=== PATIENT | female | born 2000 | race Caucasian/White ===

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

== ENCOUNTER → 2021-05-22 10:28 | Outpatient (CLI) | payer MEDICAID, SELFPAY ==
[2021-05-22 12:29] LABS: Absolute Lymphocyte Count 2.82 X10^3/uL (0.83-4.51); Basophil# 0.05 X10^3/uL; Basophil% 0.7 % (0-1); Eosinophils% 1.3 % (0-5); Hemoglobin 13.1 g/dL (12.0-15.0); Lymphocyte # 2.82 X10^3/ul (0.83-4.51); Lymphocyte % 37.7 % (19-41); Mean Corp Hgb Conc 31.2 g/dL (32-36); Mean Corpuscular Hgb 26.6 pg (27.0-32.0); Mean Corpuscular Volume 85.4 fL (81-99); Mean Platelet Vol. 10.7 fl (6.2-12.0); Monocyte# 0.52 X10^3/uL; NRBC Flagged by Analyzer 0 % (0-5); Neutrophil # 3.98 X10^3/uL (2.7-7.7); Neutrophil % 53.2 % (47-70); Platelet Count 370 K/mm3 (150-450); RBC Distribution Width CV 12.9 % (11.6-14.6); RBC Distribution Width SD 39.9 fl (35.1-43.9); Red Blood Count 4.92 M/mm3 (4.2-5.4); White Blood Count 7.5 K/mm3 (4.4-11.0)
[2021-05-22 12:39] LABS: Prothrombin Time (Protime)PT. 12.3 SECONDS (11.7-14.9)
[2021-05-22 12:40] LABS: Partial Thromboplast Time 30.1 Seconds (24.1-36.2)
[2021-05-22 12:54] LABS: ALB/GLOB Ratio 0.9 RATIO (0.9-2.4); AST(SGOT) 16 U/L (15-37); Alanine Aminotransfer ALT/SGPT 23 U/L (13-56); Albumin, Serum 3.3 g/dL (3.2-5.0); Alkaline Phosphatase 119 U/L (45-117); Anion Gap 3 (5-15); BUN 8 mg/dL (7-18); BUN/Creat Ratio 10.1 RATIO (10-20); Calcium,Total 8.9 mg/dL (8.5-10.1); Chloride 108 mmol/L (98-107); Cholesterol 165 mg/dL (200); Creatinine, Serum 0.79 mg/dL (0.55-1.02); EST Glomerular Filtration Rate 98 mL/min (>60); Est Glom Filt Rate - Afr Amer 118 mL/min (>60); Globulin 3.8 g/dL (2.2-4.2); Glucose 84 mg/dL (74-106); High Density Lipoprotein 44 mg/dL; Iron 72 ug/dL (50-170); Iron Binding Capacity,Total 379 ug/dL (250-450); Potassium 4.3 mmol/L (3.5-5.1); Protein, Total 7.1 g/dL (6.4-8.2); Sodium Level 140 mmol/L (136-145); T4 Free Direct 1.09 ng/dL (0.76-1.46); Thyroid Stim Hormone (TSH) 0.72 uIU/mL (0.358-3.74); Triglycerides 204 mg/dL; Very Low Density Lipoprotein 41 mg/dL (5-40)
== END ==
PROVIDERS: PCP Pediatrics; Referring Provider Pediatrics; Visit Provider Pediatrics
DX: T14.8XXA Other injury of unspecified body region, initial encounter (principal)
CPT/HCPCS: 36415; 80053; 80061; 83540; 83550; 84439; 84443; 85025; 85610; 85730

== ENCOUNTER → 2022-04-01 | Outpatient (CLI) | payer MEDICAID, SELFPAY ==
[2022-04-03 16:49] LABS: t-Transglutaminase IgA <2 U/mL (0-3)
[2022-04-10 12:09] LABS: Clam <0.10 kU/L (Class 0); Codfish <0.10 kU/L (Class 0); Corn <0.10 kU/L (Class 0); Crab <0.10 kU/L (Class 0); Egg, White <0.10 kU/L (Class 0); Milk (Cow) <0.10 kU/L (Class 0); Peanut <0.10 kU/L (Class 0); SCALLOP <0.10 kU/L (Class 0); SESAME SEED <0.10 kU/L (Class 0); Shrimp <0.10 kU/L (Class 0); Soybean <0.10 kU/L (Class 0); Walnut, (Food) <0.10 kU/L (Class 0); Wheat <0.10 kU/L (Class 0)
[2022-04-10 14:00] LABS: Lobster <0.10 kU/L (Class 0)
== END | disposition home or self-care (01) ==
PROVIDERS: Referring Provider Otolaryngology; Visit Provider Otolaryngology
DX: R19.7 Diarrhea, unspecified (principal)
CPT/HCPCS: 36415; 83516; 86003

== ENCOUNTER 2022-06-16 19:39 | Emergency (ER) | payer MEDICAID, SELFPAY ==
[2022-06-16 19:40] VITALS: BP 115/78; PULSE 88; RESP 16; TEMP 36.4; O2SAT 97; BMI 27.4
[2022-06-16 20:29] LABS: Bacteria 0 SEEN /hpf (None Seen); Mucous, Urine 0 SEEN /hpf (<or=2+); Red Blood Cells-Urine 0 SEEN /hpf (0-5)
--- NOTE | 2022-06-16 20:40 | EDS_ITS ---
HPI HPI - Female History of Present Illness Chief Complaint: Complaint Narrative Narrative: 22-year-old female presenting with dysuria and urinary frequency. She has some mild suprapubic pain. Patient states that she does have some back pain but she always has this year. Is on the right lumbar region. Denies any trauma. No sharp pain in the flank. A couple of days ago she was [facility] and diagnosed with UTI. She states has had a culture. They placed her on Bactrim. Patient states that she had been on Bactrim previously a long time ago. She had a UTI about a month ago and was on Keflex and this did help. She states her symptoms cleared up until this last visit on Thursday. Patient denies fever. She is not having vaginal complaints or diarrhea. She had a headache 2 days ago which is resolved. He does not have nausea or vomiting. [facility] Medical History GERD (gastroesophageal reflux disease) IBS (irritable bowel syndrome) Home Medications cefpodoxime 200 mg tablet 200 mg PO BID #20 tabs 06/16/22 [Rx Last Taken Unknown] norgestimate-ethinyl estradiol 0.18 mg/0.215mg/0.25mg-35 mcg(28)tablet (Tri- Sprintec (28)) 1 tab PO DAILY 06/16/22 [History Last Taken Unknown] sulfamethoxazole 800 mg-trimethoprim 160 mg tablet 1 tab PO BID 06/16/22 [History Last Taken Unknown] triamcinolone acetonide 55 mcg nasal spray aerosol 2 spray intranasal DAILY 06/16/22 [History Last Taken Unknown] Allergy/AdvReac Type Severity Reaction Status Date / Time pineapple Allergy Food Verified 06/16/22 19:43 Allergy RANCH DRESSING Allergy Angioedema Uncoded 06/16/22 19:43 Family History Mother Mitral valve prolapse Surgical History History of appendectomy History of tonsillectomy and adenoidectomy Social History Smoking Status: Never smoker alcohol intake: never ROS ROS ED Constitutional Constitutional ED: Denies chills, fever(s) or sweats Eyes Eyes: Denies blurry vision or change in vision ENT ENT ED: Denies ear pain or sore throat Cardiovascular Cardiovascular: Denies chest pain, palpitations or racing heartbeat Respiratory/Chest Respiratory/Chest: Denies cough, dyspnea or sputum Gastrointestinal Gastrointestinal: Denies abdominal pain, constipation, diarrhea, nausea or vomiting Genitourinary Genitourinary ED: Reports dysuria and urinary frequency; Denies hematuria Musculoskeletal Musculoskeletal: Denies arthralgias, myalgias or neck pain Integumentary Denies abscess, Abrasions or rash Neurologic Neurologic: Reports headache(s); Denies paresthesias or weakness Psychiatric Psychiatric: Denies anxiety, depression, suicidal ideation or suicidal thoughts Endocrine Endocrinology: Denies polydipsia or polyuria EXAM Physical Exam Const Vital Signs: 06/16/22 19:40 06/16/22 21:35 Temperature 97.6 F L Temperature Source Temporal Pulse Rate 88 85 Respiratory Rate 16 18 Blood Pressure 115/78 123/82 H Blood Pressure Mean 90 Pulse Ox 97 97 Oxygen Delivery Method Room Air General Appearance ED: Negative for pallor HEENT Reports normocephalic, head/scalp atraumatic and moist mucous membranes Eyes PERRL and EOMs intact bilaterally Resp normal respiratory effort and clear to auscultation bilaterally Auscultation: Negative for rales, rhonchi or wheezes Cardio regular rate and regular rhythm GI normal to inspection, nondistended, normoactive bowel sounds and non-distended Auscultation: normoactive bowel sounds Palpation: soft Narrative: Deferred Back/Spine no CVA tenderness General Back: Negative for CVA tenderness Neuro oriented x3 and CN's II-XII intact bilaterally Sensorium / Orientation: alert Motor Exam: strength 5/5 throughout Psych mental status grossly normal Attitude: No agitated Skin no rashes or lesions noted and no wounds General Skin Exam: Negative for jaundice or pallor MDM MDM MDM Narrative Medical decision making narrative: Patient presenting with continued dysuria. Urinalysis today consistent with infection. Urine culture was again sent. I could not find her previous urine culture. Vital signs are stable and she is afebrile. She does not have CVA tenderness consistent with a pyelonephritis however given her back pain and continued UTI I did cover her. She started on cefpodoxime. Patient will discontinue her Bactrim. Patient can return precautions. She is given follow- up with urology due to recurrent UTI. Impression: 1. Back pain 2. Dysuria 3. UTI Lab Data Attestation: I reviewed the patient's lab results. Labs: Laboratory Results - last 24 hr 06/16/22 20:20 Urine Color Yellow Urine Clarity Sl. Cloudy Urine pH 6.0 Ur Specific [place] 1.005 Urine Protein Negative Urine Glucose (UA) Normal Urine Ketones Negative Urine Occult Blood Negative Urine Nitrite Positive H Urine Bilirubin Negative Urine Urobilinogen 1 H Ur Leukocyte Esterase 25 H Urine RBC 0 SEEN Urine WBC 0-5 SEEN Ur Squamous Epith Cells 0-5 SEEN Urine Bacteria 0 SEEN Urine Mucus 0 SEEN Urine Test Negative Discharge Plan Triage Chief Complaint: Complaint ED Provider: Irvin Archer Dx/Rx/DC Orders Instructions: ED CYSTITIS Female Adult Prescriptions: New cefpodoxime 200 mg tablet 200 mg PO BID Qty: 20 0RF Rx Instructions: must administer with a meal/food No Action sulfamethoxazole-trimethoprim 800-160 mg tablet 1 tab PO BID Label Comments: TAKE 1 TABLET BY MOUTH TWICE DAILY FOR 5 (FIVE) DAYS. triamcinolone acetonide 55 mcg aerosol,spray 2 spray INTRANASAL DAILY Label Comments: Use 1 (ONE) spray IN EACH NOSTRIL TWICE DAILY DIRECTED norgestimate-ethinyl estradiol [Tri-Sprintec (28)] 0.18/0.215/0.25 mg-35 mcg (28) tablet 1 tab PO DAILY Label Comments: TAKE 1 TABLET BY MOUTH DAILY Primary Care Provider: Care Physician,No Primary Referrals: Alexandra Gipson MD [Med Staff - Active Staff] - 3-5 Days Care Physician,No Primary [Primary Care Provider] - Disposition Disposition: Home, Self Care Discharge Date/Time: 06/16/22 21:35
[2022-06-16 20:45] LABS: Color, Urine Yellow (Yellow); Glucose, Dipstick Normal (Normal); Ketone-Dipstick Negative (Negative); Leukocyte Esterase-Dipstick 25 /ul (Negative); Nitrite-Dipstick Positive (Negative); Occult Blood-Urine Negative /ul (Negative); Protein-Dipstick Negative (Negative); Specific Gravity, Urine 1.005 (1.002-1.030); Urine Bilirubin Dipstick Negative (Negative); Urine Clarity Sl. Cloudy (Clear); Urine Urobilinogen 1 mg/dl (Normal)
[2022-06-16 20:50] LABS: Internal QC Validated? YES +Cl - CLEAR BKGD
[2022-06-16 20:51] LABS: Pregnancy, Urine Negative Negative
[2022-06-16 20:57] LABS: Squamous Epithelial Cells - UA 0-5 SEEN /hpf (5-10); White Blood Cells 0-5 SEEN /hpf (0-5)
[2022-06-16] MEDS: Cephalexin 250 MG Capsule 500 MG PO (21:31)
[2022-06-16 21:35] VITALS: BP 123/82; PULSE 85; RESP 18; O2SAT 97
== END 2022-06-16 21:35 | disposition home or self-care (01) ==
PROVIDERS: Emergency Provider Student in an Organized Health Care Education/Training Program; Visit Provider Student in an Organized Health Care Education/Training Program
DX: N39.0 Urinary tract infection, site not specified (principal)
CPT/HCPCS: 81001; 81025; 87086; 87088; 99283

== ENCOUNTER 2022-11-27 12:15 | Day surgery (SDC) | payer MEDICAID, SELFPAY ==
[2022-11-27] MEDS: Lactated Ringers 1,000 ML 15 ML IV (12:25)
[2022-11-27 12:42] LABS: Internal QC Validated? YES +Cl - CLEAR BKGD; Pregnancy, Urine Negative Negative
[2022-11-27 12:43] VITALS: BP 116/65; PULSE 71; RESP 16; TEMP 36.7; O2SAT 100; BMI 28.0
[2022-11-27 13:01] LABS: Hematocrit 41.3 % (37-47); Hemoglobin 13.3 g/dL (12.0-15.0); Mean Corp Hgb Conc 32.2 g/dL (32-36); Mean Corpuscular Hgb 26.9 pg (27.0-32.0); Mean Corpuscular Volume 83.4 fL (81-99); Mean Platelet Vol. 9.8 fl (6.2-12.0); Platelet Count 373 K/mm3 (150-450); Red Blood Count 4.95 M/mm3 (4.2-5.4); White Blood Count 8.1 K/mm3 (4.4-11.0)
--- NOTE | 2022-11-27 13:16 | PCM.DC ---
Discharge Instructions Diet Discharge Diet: No restrictions Activity Discharge Activity: May Drive (Once you are more than 24 hours out from surgery, no longer taking pain medication, and you feel strong enough to slam on a brake or turn a steering wheel sharply) and May Shower (once you are more than 24 hours out from surgery) May resume sexual activity in: 1 week (you will have light bleeding/spotting for about 1 week so no tampons, intercourse, or soaking in water during this time) Ice area for (Minutes): 15 Weight Bearing Status: Weight bearing as tolerated Lifting Restrictions: Nothing heavier than 10-15 lbs for 1 week Dressing / Incision Call your doctor if your incision/area has: Continuous Slow Oozing, Sudden Increased Bleeding, Increased Pain/ Swelling, Increased Redness, Foul Smelling Discharge and Swelling at the incision site Call your doctor if you observe: Fever of 101 or Higher, Coldness, Increased Pain, Numbness or Tingling, Change in Color, Inability to urinate, Inability to have a bowel movement, Using more than 1 pad per hour, Shortness of breath, Dizziness, Fainting spells, Swelling in the ankles, Chest pain, Increased palpitations (irregular heartbeat), Calf discomfort and Uncontrolled pain Suture Line Care: Avoid Pulling/Pushing and Avoid Pinching/Bending Remove Dressing in: leave until fall off (there is suture under the skin that will dissolve. There is also glue over the incisions. This glue will start to peel up and fall off. You can cut the raised edges if they bother you) Cleanse incision/area with: Soap & Water Follow Up Care Please Follow Up With: Lizette Reich DO When: 1-2 weeks Test Results: Test results from this visit will be discussed in further detail at your follow-up appointment, if applicable. Discharge Plan Admission Primary Reason for Your Visit: surgery Attending Provider: Lizette Reich Primary Care Provider: Isabel PhysicianKristy Primary Instructions Patient Instructions: Laparoscopic Tubal Sterilization Discharge Orders/Prescriptions Prescriptions: New oxycodone-acetaminophen [Percocet] 5-325 mg tablet 1 tab PO Q8H PRN (Reason: pain) 7 Days Qty: 5 0RF ibuprofen 600 mg tablet 600 mg PO Q6H PRN (Reason: pain) Qty: 30 0RF Referrals / Follow Up: Care Physician,Kristy Primary [Primary Care Provider] - Disposition Disposition (needs filled in before D/C Order can be placed): Home, Self Care
--- NOTE | 2022-11-27 13:18 | PCM.OPRPT ---
Problems Associated Problem List Diagnoses (1) Encounter for sterilization: Report of Operation Date of Procedure: 11/27/22 Pre-Operative Diagnosis: Request for sterilization Post-Operative Diagnosis: As above Surgery/Procedure Performed:: Laparoscopic bilateral salpingectomy Description of Surgical Findings:: Normal appearing uterus, bilateral fallopian tubes, bilateral ovaries. Normal appearing pelvis. Surgeon: Lizette Reich residential substance abuse counselor: Mireya Howe MS3 Type of Anesthesia: General Special Medications: None Specimen's removed: Bilateral fallopian tubes Drains: None Estimated Blood Loss (mL): < 50 cc Fluids Replaced: 500 cc Description of Procedure: The patient was taken to the operating room where general anesthesia was induced. She was prepped and draped in the dorsal lithotomy position using yellowfin stirrups. A weighted speculum was placed in the vagina. The anterior lip of the cervix was grasped with a single-tooth tenaculum. An acorn uterine manipulator was placed. The weighted speculum was removed. Gloves were changed and attention was turned to the abdominal portion of the procedure. Local was infiltrated at all port sites. An infraumbilical incision was made to accommodate a 5 mm trocar. The 5 mm trocar was placed under direct visualization using laparoscope. Once confirmed intraperitoneal, CO2 insufflation was initiated. The abdomen was inspected with no injury noted upon entry. The patient was placed in Trendelenburg position. A left lateral 5 mm trocar was placed under direct visualization with no inadvertent injury noted. A right lateral 5 mm port was placed under direct visualization with no inadvertent injury noted. The uterus was upheld from below and the pelvis was normal-appearing. The right fallopian tube was followed out to the fimbriated end. Using the LigaSure device the mesosalpinx was serially clamped, cauterized, and transected hugging adjacent to the fallopian tube until reaching level of the cornua. Once at the level of the cornua the fallopian tube was transected and removed. The same was performed on the left. The left fallopian tube was followed out to the fimbriated end and elevated out of the pelvis. The LigaSure device was used to serially clamp, cauterize, and transect along the mesosalpinx hugging adjacent to the tube until reaching level of the cornua. Once at the level of the cornua the fallopian tube was transected and removed. Bilateral fallopian tubes were removed and sent to pathology for review. Bleeding was hemostatic. Ports were removed and no bleeding noted. The abdomen was exsufflated. The skin was closed with 4 Monocryl and glue. All instruments were removed vaginally. No vaginal bleeding was noted. Vaginal sweep was performed. Instrument, sponge, needle counts were correct. The patient was taken to the recovery in stable condition. The child care assistant was present for the entire case and assisted with holding the laparoscopic camera, elevating the fallopian tubes for removal, and closure of the skin. Grafts/Implants Used: None Procedure Start Time: 13:44 Procedure Stop Time: 14:22 Complications None Admit VTE Documentation VTE Present on Admission: No VTE Mechan Device Prophylaxis: SCD's
--- NOTE | 2022-11-27 13:25 | FALS_PTH ---
PATIENT: JOSH PRADO LOC: [facility] [place] U#:[id number] AGE/SX: ROOM: RE11/27/[address]: Dr. Lizette Reich DO : 2000 BED: DIS: 11/27/2022 SPEC #: [id number] RECD: 11/27/22 16:01 STATUS: SUSHIL RESandro #: [id number] DRISS: 11/27/22 13:[address]: Lizette Reich DEPT: SURGICAL PATHOLOGY RECD BY: Ev Millan ENTERED: 11/28/22 11:39 SP TYPE: FALL TUBES OTHR DR: Kristy Primary Care Phys Tissues: Fallopian tube Procedures: Surgery Specimen Level II HEADER OPERATION: Laparoscopic hysterectomy PRE-OP DIAGNOSIS: Elective sterilization TISSUE SUBMITTED: Bilateral fallopian tubes MICROSCOPIC DIAGNOSIS Right and left fallopian tubes, bilateral salpingectomies: Complete cross-sections of fallopian tubes with no pathologic change. AM:any 12/01/2022 MICROSCOPIC DESCRIPTION Slides are reviewed. GROSS DESCRIPTION Received in fixative is one container labeled with the patient's name and designated bilateral fallopian tubes. The specimen consists of bilateral fallopian tubes including fimbrial ends measuring 6 cm in length and 0.6 cm in diameter and 4 cm in length and 0.8 cm in diameter. The fallopian tubes are not identified as right or left. Sections reveal unremarkable cut surfaces. Rubber Tubing Splicer sections are submitted in two cassettes with each cassette containing one fallopian tube. / DK:any 11/28/2022 TC:4 CPT: 49094 x2
[2022-11-27] MEDS: Bupivacaine Mpf 0.5% 30 ML VIAL (13:44)
[2022-11-27 14:38] VITALS: BP 116/65; BP 127/62; PULSE 90; RESP 16; TEMP 36.3; O2SAT 99
[2022-11-27 14:45] VITALS: BP 113/55; BP 116/65; PULSE 70; RESP 16; O2SAT 100
[2022-11-27 15:00] VITALS: BP 113/55; BP 116/65; PULSE 60; RESP 15; O2SAT 100
[2022-11-27 15:15] VITALS: BP 116/65; BP 116/69; PULSE 59; RESP 15; TEMP 36.1; O2SAT 98
[2022-11-27 16:10] VITALS: BP 116/65; BP 119/56; PULSE 80; RESP 16; TEMP 37.3; O2SAT 100
== END 2022-11-27 16:12 | disposition home or self-care (01) ==
LOC: SDC 12:16 → AC 12:17
PROVIDERS: Anesthesiology; Referring Provider Obstetrics & Gynecology; Visit Provider Obstetrics & Gynecology
PROC: (CPT 58661; principal; 2022-11-27 13:10)
DX: Z30.2 Encounter for sterilization (principal)
CPT/HCPCS: 58661; 00840; 81025; 85027; 86850; 86900; 86901; 88302; J7120; J2405